=== PATIENT | female | born 1950 | race Caucasian/White ===

== ENCOUNTER 2021-10-08 13:55 | Emergency (ER) | payer MEDICARE ==
[~2021-10-08] VITALS: Ht 160 cm; Wt 54.4 kg
--- NOTE | 2021-10-08 14:04 | NUR ---
Pt triaged and placed in waiting room . Pt is A&Ox4. Skin intact. VSS. Pt BIBA ACLS coming from [facility] due to falling and landing on right knee. Pt c/o right knee pain 8/ non-radiating. Did not hit head and no LOC. NKA. Has hx og liver cancer and is in remission. No chest pain and no sob. No trauma noted. Denies n/v. Ambulatory with assistance.
[2021-10-08 14:07] VITALS: BP_SYST 159
--- NOTE | 2021-10-08 22:20 | NUR ---
Dr. Nance at bedside.
[2021-10-08] MEDS ORDERED: HYDROcodone/ACETAMIN 5-325 MG TAB (NORCO/ VICODIN) PO ONE (22:45)
[2021-10-08] MEDS ORDERED: DIPH-TET-PERTUS Vaccine 0.5 ML VIAL (ADACEL) I.M. ONE (23:00)
--- NOTE | 2021-10-08 23:56 | NUR ---
Patient to ER bed 1 to gown for evaluation. Side rails up. Report given to Ivet.
[2021-10-09] MEDS ORDERED: HYDR-3917 PO (00:44)
[2021-10-09] MEDS ORDERED: KETOROLAC TROMETHAMINE 30 MG VIAL IM ONE (01:45)
[2021-10-09 02:19] VITALS: BP_SYST 136
--- NOTE | 2021-10-09 02:19 | NUR ---
Patient given written and verbal discharge instructions and verbalizes understanding. ER MD discussed with patient the results and treatment provided. Patient in stable condition. ID arm band removed. Rx of given. Patient educated on pain management and to follow up with PMD. Opportunity for questions provided and answered. Medication side effect fact sheet provided.
== END 2021-10-09 02:20 | disposition home or self-care (01) ==
LOC: SED 13:55
DX: S72.411A Displaced unspecified condyle fracture of lower end of right femur, initial encounter for closed fracture (principal); S82.141A Displaced bicondylar fracture of right tibia, initial encounter for closed fracture; W18.39XA Other fall on same level, initial encounter; Y93.89 Activity, other specified; Y92.89 Other specified places as the place of occurrence of the external cause; Y99.8 Other external cause status
CPT/HCPCS: 99284; 73700; 73564; 76376; 96372; 90471; J1885; 90715